=== PATIENT | female | born 1950 | race Caucasian/White ===

== ENCOUNTER 2022-02-12 11:27 | Inpatient (IN) | payer MEDICARE ==
[~2022-02-12] VITALS: Ht 147.3 cm; Wt 59.0 kg
[2022-02-12 12:05] LABS: Calcium, Ionized (POC) 1.19 mmol/L (1.10-1.46); Chloride (POC) 100 mmol/L (98-108); Creatinine (POC) 1.4 mg/dL (0.6-1.0); Glucose (ISTAT POC) 361 mg/dL (70-99); Potassium (POC) 4.6 mmol/L (3.5-5.5); Sodium (POC) 131 mmol/L (135-148); Total CO2 (POC) 20 mmol/L (21-32)
[2022-02-12 12:29] LABS: BASOPHILS PERCENT AUTO 1 % (0-2); EOSINOPHILS ABSOLUTE AUTO 0.08 K/mm3 (0.00-0.68); EOSINOPHILS PERCENT AUTO 1 % (0-6); Hematocrit 45.2 % (33.0-51.0); Hemoglobin 14.9 g/dL (11.5-16.0); IMMATURE GRAN ABSOLUTE AUTO 0.05 K/mm3 (0.00-0.10); IMMATURE GRAN PERCENT AUTO 0 % (0-1); LYMPHOCYTES ABSOLUTE AUTO 1.33 K/mm3 (0.84-5.20); LYMPHOCYTES PERCENT AUTO 10 % (21-46); MONOCYTES ABSOLUTE AUTO 0.46 K/mm3 (0.16-1.47); MONOCYTES PERCENT AUTO 4 % (4-13); Mean Corpuscular HGB 28.5 pg (26.0-34.0); Mean Corpuscular Volume 87 fL (80-100); Mean Platelet Volume 11.9 fL (9.1-12.4); NEUTROPHILS ABSOLUTE AUTO 11.19 K/mm3 (1.96-9.15); NEUTROPHILS PERCENT AUTO 85 % (41-73); Platelet Count 297 K/mm3 (150-400); RDW Standard Deviation 38.2 fL (35.1-46.3); Red Blood Cell Count 5.22 M/mm3 (3.80-5.20); White Blood Cell Count 13.21 K/mm3 (4.00-11.30)
[2022-02-12 12:40] LABS: Alanine Aminotransfer (ALT/SGP 16 U/L (12-78); Albumin, Blood 3.7 g/dL (3.4-5.0); Albumin/Globulin Ratio 0.9 (0.8-1.8); Alk Phos 69 U/L (50-136); Aspartate Aminotrans (AST/SGOT 21 U/L (12-37); Bilirubin, Total 0.5 mg/dL (0.1-1.0); Blood Urea Nitrogen 43 mg/dL (8-24); Bun/Creatinine Ratio 28.1 (12.0-20.0); CHOL/HDL RATIO 4.4; CO2, Blood 23 mmol/L (21-32); Calcium, Blood 9.6 mg/dL (8.5-10.1); Chloride, Blood 100 mmol/L (98-108); Cholesterol 222 mg/dL (50-200); Creatinine, Blood 1.53 mg/dL (0.40-1.00); Globulin, Blood 4.2 g/dL (2.2-4.0); Glomerular Filtration Rate 33 (60-); Glucose, Blood 372 mg/dL (70-99); HDL Cholesterol 50 mg/dL (>39); LDL/HDL RATIO 2.6; Low Density Lipoprotein Chol 130 mg/dL (0-110); Magnesium, Blood 2.2 mg/dL (1.6-2.4); Potassium, Blood 4.6 mmol/L (3.5-5.5); Total Protein, Blood 7.9 g/dL (6.4-8.2); Triglycerides 210 mg/dL (30-160); Very Low Density Lipoprot Chol 42 mg/dL (6-32)
[2022-02-12 12:46] LABS: Anion Gap 7 mmol/L (6-16); Sodium, Blood 130 mmol/L (136-145)
[2022-02-12 13:06] LABS: International Normalized Ratio 0.99; Prothrombin Time Results 10.4 Sec (9.7-11.5)
--- NOTE | 2022-02-12 14:40 | NUR ---
ASSUMED CARE OF PATIENT 1350: AOX4, FOLLOW COMMANDS, CALM/COOPERATIVE, AFEBRILE, ST VS SVT 100S RATE SPONTANEOUS RETURN TO 60S RATE 2ND AV BLOCK TYPE 2 ASYMPTOMATIC, BP HTN 150S, CLEAR LUNGS ON RA, DENIES SOB, AGGRESTAT CONTINUOUS 5.2ML/HR FOR 18 HRS PER MD REEVES, JOEY PLACED APPROVED MD, 3 STENTS TO RCA, HIGH RISK PCI TO LAD REQUIRES SURGICAL OPTIONS, ABDOMEN NON-TENDER HYPOACTIVE BOWELS, BED/ADMITTING PHYSICIAN ACCEPTED [facility], WILL GIVE REPORT TO RECEIVING FACILITY AND CONTINUE TO MONITOR.
[2022-02-12 15:07] LABS: Source, Urine Foley catheter
[2022-02-12 15:47] LABS: Bilirubin, Urine Neg (Neg); Blood, Urine Neg (Neg); Glucose Qualitative, Urine 4+ (Neg); Ketones, Urine Neg (Neg); Leukocyte Esterase, Urine Neg (Neg); Nitrite, Urine Pos (Neg); Protein, Urine 2+ (Neg); Urobilinogen, Urine NORM (Normal); pH, Urine 6.5 (5.0-8.0)
[2022-02-12 15:54] LABS: Appearance, Urine Hazy (Clear); Color, Urine Pale Yellow (P-Yellow); Red Blood Cells, Urine 0-2 /hpf (0-2); White Blood Cells, Urine 0-2 /hpf (0-5)
[2022-02-12 15:55] LABS: Bacteria Rare /hpf; Squamous Epithelial Cells Rare /hpf (Few)
--- NOTE | 2022-02-12 15:57 | NUR ---
PT REPORTS IMPROVED PAIN LEVELS, CONTINUES 2ND AV BLOCK TYPE 2 VS SR 60S ASYMPTOMATIC, HTN 130S, COOK PLACED CLEAR YELLOW URINE, UA SENT, REPROT GIVEN TO RECEIVING RN ISABELLA, REPORT GIVEN TO EMS, PATIENT AND FAMILY HAD NO FURTHER QUESTIONS, BELONGINGS REMAINED WITH FAMILY, PT REMAINED SUPINE FOR R AGNIOSEAL FEMORAL ACCESS CDI NO HEMATOMA OR BLEEDING, AGGRASTAT REMAINED AT 5.2ML/HR OR 0.075MCG/KG/MIN RENAL DOSE CONFIRMED WITH PHARMACY TO BE CONTINUED PER MD FELTON.
== END 2022-02-12 15:30 | disposition short-term general hospital (02) | DRG 247 ==
LOC: ER 11:27 → ICUW 12:04
PROVIDERS: Emergency Medicine; ADMIT Internal Medicine Cardiovascular Disease
PROC: 027136Z Dilation of Coronary Artery, Two Arteries with Three Drug-eluting Intraluminal Devices, Percutaneous Approach (ICD-10-PCS; principal; 2022-02-12)
PROC: B2161ZZ Fluoroscopy of Right and Left Heart using Low Osmolar Contrast (ICD-10-PCS; 2022-02-12)
DX: I21.19 ST elevation (STEMI) myocardial infarction involving other coronary artery of inferior wall (principal); I25.10 Atherosclerotic heart disease of native coronary artery without angina pectoris; E78.5 Hyperlipidemia, unspecified; I10 Essential (primary) hypertension; E11.9 Type 2 diabetes mellitus without complications; E78.00 Pure hypercholesterolemia, unspecified
CPT/HCPCS: 36415; 51702; 80047; 80053; 80061; 81001; 83735; 84484; 85014; 85025; 85347; 85610; 86850; 86900; 86901; 93005; 93010; 93454; 96374; 99152; 99153; 99285-25; A9270; C1725; C1760; C1769; C1874; C1887; C1894; C9606; J0360; J0461; J1644; J3010; J3246; J7030; Q9967

== ENCOUNTER 2022-02-18 14:13 | Emergency (ER) | payer MEDICARE ==
[~2022-02-18] VITALS: Ht 147.3 cm; Wt 58.1 kg
[2022-02-18 14:51] LABS: BASOPHILS ABSOLUTE AUTO 0.07 K/mm3 (0.00-0.23); BASOPHILS PERCENT AUTO 1 % (0-2); EOSINOPHILS ABSOLUTE AUTO 0.05 K/mm3 (0.00-0.68); EOSINOPHILS PERCENT AUTO 0 % (0-6); Hematocrit 33.1 % (33.0-51.0); Hemoglobin 10.8 g/dL (11.5-16.0); IMMATURE GRAN ABSOLUTE AUTO 0.18 K/mm3 (0.00-0.10); IMMATURE GRAN PERCENT AUTO 1 % (0-1); LYMPHOCYTES ABSOLUTE AUTO 1.04 K/mm3 (0.84-5.20); LYMPHOCYTES PERCENT AUTO 8 % (21-46); MONOCYTES PERCENT AUTO 6 % (4-13); Mean Corpuscular HGB 28.5 pg (26.0-34.0); Mean Corpuscular HGB Conc 32.6 g/dL (31.5-36.5); Mean Corpuscular Volume 87 fL (80-100); Mean Platelet Volume 11.3 fL (9.1-12.4); NEUTROPHILS ABSOLUTE AUTO 11.34 K/mm3 (1.96-9.15); NEUTROPHILS PERCENT AUTO 84 % (41-73); Platelet Count 330 K/mm3 (150-400); RDW Coefficient Variation 12.9 % (11.7-14.2); RDW Standard Deviation 40.9 fL (35.1-46.3); Red Blood Cell Count 3.79 M/mm3 (3.80-5.20); White Blood Cell Count 13.48 K/mm3 (4.00-11.30)
[2022-02-18 15:22] LABS: Albumin/Globulin Ratio 0.8 (0.8-1.8); Bilirubin, Total 0.3 mg/dL (0.1-1.0); Bun/Creatinine Ratio 26.1 (12.0-20.0); Calcium, Blood 7.9 mg/dL (8.5-10.1); Creatinine, Blood 2.22 mg/dL (0.40-1.00); Globulin, Blood 3.7 g/dL (2.2-4.0); Potassium, Blood 4.5 mmol/L (3.5-5.5); Total Protein, Blood 6.7 g/dL (6.4-8.2)
[2022-02-18 17:12] LABS: Source, Urine Clean Catch
[2022-02-18 17:14] LABS: Appearance, Urine Hazy (Clear); Bilirubin, Urine Neg (Neg); Blood, Urine Neg (Neg); Color, Urine Yellow (P-Yellow); Glucose Qualitative, Urine 3+ (Neg); Ketones, Urine Neg (Neg); Leukocyte Esterase, Urine 3+ (Neg); Nitrite, Urine Neg (Neg); Protein, Urine 1+ (Neg); Specific Gravity, Urine 1.015 (1.003-1.022); Urobilinogen, Urine NORM (Normal)
[2022-02-18 17:25] LABS: Red Blood Cells, Urine 0-2 /hpf (0-2); White Blood Cells, Urine 25-50 /hpf (0-5)
[2022-02-18 17:26] LABS: Bacteria Few /hpf; Squamous Epithelial Cells Few /hpf (Few)
[2022-02-18] MEDS ORDERED: CEPH500 PO (18:20)
[2022-02-18] MEDS ORDERED: PROM25 PO (18:20)
[2022-02-18] MEDS ORDERED: ONDA4ODT MM (18:20)
== END 2022-02-18 18:41 | disposition home or self-care (01) ==
LOC: ER 14:13
PROVIDERS: Physician Assistant
DX: N39.0 Urinary tract infection, site not specified (principal); K59.00 Constipation, unspecified; I10 Essential (primary) hypertension; E11.9 Type 2 diabetes mellitus without complications; E78.00 Pure hypercholesterolemia, unspecified
CPT/HCPCS: 36415; 74018; 80053; 81001; 83690; 85025; 87086; 87147; 96374; 96375; 99284-25; J0696; J2550

== ENCOUNTER 2023-06-23 19:03 | Inpatient (IN) | payer MEDICARE ==
[~2023-06-23] VITALS: Ht 147.3 cm; Wt 60.0 kg
[~2023-06-23 19:03] MED LIST: CEPH500 PO; ONDA4ODT MM; PROM25 PO
[2023-06-23 19:30] LABS: BASOPHILS PERCENT AUTO 1 % (0-2); EOSINOPHILS ABSOLUTE AUTO 0.21 K/mm3 (0.00-0.68); EOSINOPHILS PERCENT AUTO 2 % (0-6); Hematocrit 41.2 % (33.0-51.0); IMMATURE GRAN ABSOLUTE AUTO 0.04 K/mm3 (0.00-0.10); IMMATURE GRAN PERCENT AUTO 0 % (0-1); LYMPHOCYTES ABSOLUTE AUTO 0.49 K/mm3 (0.84-5.20); LYMPHOCYTES PERCENT AUTO 6 % (21-46); MONOCYTES ABSOLUTE AUTO 0.62 K/mm3 (0.16-1.47); MONOCYTES PERCENT AUTO 7 % (4-13); Mean Corpuscular HGB 26.5 pg (26.0-34.0); Mean Corpuscular HGB Conc 31.6 g/dL (31.5-36.5); Mean Corpuscular Volume 84 fL (80-100); NEUTROPHILS ABSOLUTE AUTO 7.52 K/mm3 (1.96-9.15); NEUTROPHILS PERCENT AUTO 84 % (41-73); Platelet Count 351 K/mm3 (150-400); RDW Coefficient Variation 16.4 % (11.7-14.2); RDW Standard Deviation 50.3 fL (35.1-46.3); White Blood Cell Count 8.98 K/mm3 (4.00-11.30)
[2023-06-23 19:48] LABS: Albumin, Blood 3.2 g/dL (3.4-5.0); Bilirubin, Total 0.4 mg/dL (0.1-1.0); Calcium, Blood 8.3 mg/dL (8.5-10.1); Creatinine, Blood 1.22 mg/dL (0.40-1.00); Globulin, Blood 3.2 g/dL (2.2-4.0); Potassium, Blood 4.8 mmol/L (3.5-5.5); Total Protein, Blood 6.4 g/dL (6.4-8.2)
[2023-06-23] MEDS ORDERED: LATANOPROST2.5 M3 (23:28)
[2023-06-23] MEDS ORDERED: CALCITRIOL0.25 MC4 PO (23:29)
[2023-06-23] MEDS ORDERED: GLIP5ER PO (23:29)
[2023-06-23] MEDS ORDERED: DORZOLAMIDE-TIM10 ML (23:30)
[2023-06-23] MEDS ORDERED: PLAVIX75 MG PO (23:32)
[2023-06-23] MEDS ORDERED: BRIMONIDINE TART5 M2 BOTHEYES (23:32)
[2023-06-23] MEDS ORDERED: ATOR40TA PO (23:33)
[2023-06-23] MEDS ORDERED: CARVEDILOL25 M9 PO (23:33)
--- NOTE | 2023-06-23 23:43 | NUR ---
PT CHART REVIEWED FOR ADMIT
[2023-06-24 00:40] VITALS: BP 147/68
--- NOTE | 2023-06-24 01:28 | NUR ---
PATIENT IS A NEW ADMIT FROM THE ED. AXOX 4 AND BEDREST ORDER. ON 4L O2 NC AND RA BASELINE. DENIES CHEST PAIN, SOB, AND N/V. THREE PERSON TRANSFER FROM [facility] TO BED. PUREWICK IN PLACE FROM THE ED AND RECONNECTED. ORIENTED TO ROOM AND CALL LIGHT SYSTEM. REPORTED BLADDER DISCOMFORT. RECEIVED IV 80 MG LASIX IN ED. REPORTS WANTS TO SLEEP AFTER ASSESSMENT. WCTM.
--- NOTE | 2023-06-24 04:27 | NUR ---
SHIFT SUMMARY PATIENT HAD NO ACUTE CHANGES. AXOX 4 AND BEDREST PER ORDERS. DENIES CHEST PAIN, SOB, AND N/V. ON 4L O2 NC AND RA BASELINE. REPORTED BLADDER DISCOMFORT AND TYLENOL 650 MG GIVEN PER EMAR. PIV REMAINS INTACT. TELE MONITOR REPORTS NSR 79. PUREWICK IN PLACE DRAINING. COOPERATIVE WITH CARE. CALL LIGHT IN REACH. BED IN LOWEST POSITION. WILL CONTINUE TO MONITOR UNTIL DAY SHIFT NURSE ASSUMES CARE.
[2023-06-24 06:08] LABS: Bun/Creatinine Ratio 22.8 (12.0-20.0); Calcium, Blood 8.3 mg/dL (8.5-10.1); Creatinine, Blood 1.27 mg/dL (0.40-1.00); Potassium, Blood 4.3 mmol/L (3.5-5.5)
[2023-06-24 07:32] VITALS: BP 150/74
--- NOTE | 2023-06-24 16:01 | NUR ---
SHIFT NOTE PT RESTING QUIETLY. FAMILY AT BEDSIDE. BLE EDEMA MARGINALLY IMPROVED. PT INCONTINENET OF URINE. WHEN SHE PEES SHE ALSO STOOLS. UNABLE TO USE PURWICK. VSS. GOOD APPETITE. ECHO COMPLETE. DENIED PAIN OR DISCOMFORT. UP TO BSC WITH 1 ASSIST. GAIT STEADY, SLOW. DENIED SOB OR CHEST PAIN. SHE IS ABLE TO LAY FLAT AND REST. CONTINUE POC.
[2023-06-24 17:25] VITALS: BP 146/70
[2023-06-24 19:16] VITALS: BP 133/60
[2023-06-25 02:24] VITALS: BP 150/67
--- NOTE | 2023-06-25 03:45 | NUR ---
SHIFT SUMMERY. PT RESTING IN BED. PT HAS ON [employer]. PT CHECKED SEVERAL TIMES AND CHANGED. CAAALL LIGHT IN REACH FIRE SAFETY REVIEWED.
[2023-06-25 05:32] LABS: Bun/Creatinine Ratio 21.1 (12.0-20.0); Calcium, Blood 8.4 mg/dL (8.5-10.1); Creatinine, Blood 1.42 mg/dL (0.40-1.00); Magnesium, Blood 1.7 mg/dL (1.6-2.4); Potassium, Blood 3.9 mmol/L (3.5-5.5)
[2023-06-25 07:26] VITALS: BP 165/68
[2023-06-25 16:59] VITALS: BP 168/75
--- NOTE | 2023-06-25 18:41 | NUR ---
SHIFT NOTE PT RESTING WELL TODAY. FAMILY MET WITH DR ANGELES. PLAN TO GO HOME TOMORROW. PT CONTINUES TO VOID LARGE AMOUNTS OF URINE. PURWICK IN PLACE. 1 LARGE LOOSE STOOL. PT REQUESTED LOMOTIL. CALLED DR ANGELES. ORDER RECEIVED. WRINKLES APPEARING IN HER FACE, HANDS AND FEET FROM FLUID LOSS. GOOD APPETITE. VSS. STILL REQUIRING OXYGEN AT REST. DENIED PAIN OR DISCOMFORT. BED IN LOW POSTION. CALL LIGHT WITH IN REACH. PT ASSESSED AND EDUCATED ABOUT FIRE RISK. CONTINUE POC.
[2023-06-25 19:43] VITALS: BP 155/63
[2023-06-26 02:34] VITALS: BP 163/79
--- NOTE | 2023-06-26 05:42 | NUR ---
SHIFT SUMMERY. PT RESTING IN BED WATCHING TV AND WORKING ON IPAD. PT CALM AND COOPREATIVE. RESTING IN BED. PUTTING OUT LOTS OF URINE. CALL LIGHT IN REACH FIRE SAFETY REVIEWED.
[2023-06-26 07:53] VITALS: BP 169/70
[2023-06-26] MEDS ORDERED: JARDIANCE10 MG PO (11:22)
[2023-06-26] MEDS ORDERED: FAMO20 PO (11:23)
[2023-06-26] MEDS ORDERED: FURO40 PO (11:23)
--- NOTE | 2023-06-26 14:53 | NUR ---
PATIENT DISCHARGED TO HOME, ACCOMPANIED BY HER DAUGHTER. IV SALINE LOCK AND TELEMETRY REMOVED WITHOUT INCIDENT. PATIENT AND DAUGHTER VERBALIZED UNDERSTANDING OF D/C INSTRUCTIONS AND NEW DX CHF EDUCATION. OFF UNIT VIA W/C AT 1234. CELL PHONE RETAIL AND RESTAURANT HUGO IN ROOM AFTER D/C, FAMILY NOTIFIED BY Marilyn COYNE CNA.
== END 2023-06-26 12:34 | disposition home or self-care (01) | DRG 291 ==
LOC: ER 19:03 → MEDS 23:50 → ENPENDDIS 06-26 10:22 → MEDS 06-26 12:34
PROVIDERS: Internal Medicine; Physician Assistant; ADMIT Internal Medicine
DX: I13.0 Hypertensive heart and chronic kidney disease with heart failure and stage 1 through stage 4 chronic kidney disease, or unspecified chronic kidney disease (principal); I50.31 Acute diastolic (congestive) heart failure; J96.01 Acute respiratory failure with hypoxia; R23.1 Pallor; N18.32 Chronic kidney disease, stage 3b; E86.0 Dehydration; H40.9 Unspecified glaucoma; E78.00 Pure hypercholesterolemia, unspecified; I25.10 Atherosclerotic heart disease of native coronary artery without angina pectoris; E11.22 Type 2 diabetes mellitus with diabetic chronic kidney disease; K58.9 Irritable bowel syndrome, unspecified; Z95.5 Presence of coronary angioplasty implant and graft; Z79.899 Other long term (current) drug therapy; Z79.2 Long term (current) use of antibiotics; Z79.02 Long term (current) use of antithrombotics/antiplatelets
CPT/HCPCS: 36415; 71046; 80048; 80053; 82947; 83036; 83735; 83880; 84484; 85025; 93005; 93010; 93306; 94760; 94762; 96374; 99285-25; A9270; J1644; J1940

== ENCOUNTER 2024-05-04 10:58 | Emergency (ER) | payer MEDICARE ==
[~2024-05-04] VITALS: Ht 147.3 cm; Wt 54.9 kg
[~2024-05-04 10:58] MED LIST changes: +ATOR40TA PO; +BRIMONIDINE TART5 M2 BOTHEYES; +CALCITRIOL0.25 MC4 PO; +CARVEDILOL25 M9 PO; +DORZOLAMIDE-TIM10 ML; +FAMO20 PO; +FURO40 PO; +GLIP5ER PO; +JARDIANCE10 MG PO; +LATANOPROST2.5 M3; +PLAVIX75 MG PO
[2024-05-04 12:12] LABS: Albumin, Blood 3.6 g/dL (3.4-5.0); Albumin/Globulin Ratio 0.9 (0.8-1.8); Bilirubin, Total 0.7 mg/dL (0.1-1.0); Bun/Creatinine Ratio 27.2 (12.0-20.0); Calcium, Blood 9.1 mg/dL (8.5-10.1); Creatinine, Blood 1.62 mg/dL (0.40-1.00); Globulin, Blood 3.9 g/dL (2.2-4.0); Potassium, Blood 4.2 mmol/L (3.5-5.5); Total Protein, Blood 7.5 g/dL (6.4-8.2)
[2024-05-04 12:22] LABS: BASOPHILS ABSOLUTE AUTO 0.06 K/mm3 (0.00-0.23); BASOPHILS PERCENT AUTO 1 % (0-2); EOSINOPHILS ABSOLUTE AUTO 0.21 K/mm3 (0.00-0.68); EOSINOPHILS PERCENT AUTO 3 % (0-6); Hematocrit 42.2 % (33.0-51.0); Hemoglobin 13.5 g/dL (11.5-16.0); IMMATURE GRAN ABSOLUTE AUTO 0.02 K/mm3 (0.00-0.10); IMMATURE GRAN PERCENT AUTO 0 % (0-1); LYMPHOCYTES ABSOLUTE AUTO 0.67 K/mm3 (0.84-5.20); LYMPHOCYTES PERCENT AUTO 11 % (21-46); MONOCYTES ABSOLUTE AUTO 0.53 K/mm3 (0.16-1.47); MONOCYTES PERCENT AUTO 8 % (4-13); Mean Corpuscular HGB 29.7 pg (26.0-34.0); Mean Corpuscular Volume 93 fL (80-100); Mean Platelet Volume 11.8 fL (9.1-12.4); NEUTROPHILS PERCENT AUTO 77 % (41-73); Platelet Count 188 K/mm3 (150-400); RDW Coefficient Variation 12.3 % (11.7-14.2); RDW Standard Deviation 42.1 fL (35.1-46.3); Red Blood Cell Count 4.55 M/mm3 (3.80-5.20); White Blood Cell Count 6.39 K/mm3 (4.00-11.30)
[2024-05-04] MEDS ORDERED: BENZ100A PO (13:23)
[2024-05-04 14:00] VITALS: BP 129/76
== END 2024-05-04 14:13 | disposition home or self-care (01) ==
LOC: ER 10:58
PROVIDERS: Student in an Organized Health Care Education/Training Program
DX: U07.1 COVID-19 (principal); I13.0 Hypertensive heart and chronic kidney disease with heart failure and stage 1 through stage 4 chronic kidney disease, or unspecified chronic kidney disease; E11.22 Type 2 diabetes mellitus with diabetic chronic kidney disease; I50.9 Heart failure, unspecified; N18.30 Chronic kidney disease, stage 3 unspecified; E78.5 Hyperlipidemia, unspecified; Z79.899 Other long term (current) drug therapy; Z79.02 Long term (current) use of antithrombotics/antiplatelets
CPT/HCPCS: 71045; 80053; 85025; 93005; 93010; 99284-25